=== PATIENT | female | born 1975 | race Caucasian/White ===

== ENCOUNTER 2021-02-17 13:42 | Emergency (ER) | payer MEDICARE ==
[~2021-02-17 13:42] MED LIST: BACTRIM DS TAB1 EACH PO; METRONIDAZOLE500 MG PO
[2021-02-17 14:58] LABS: BASOPHIL 0.4 % (0-2); HGB 15.4 g/dl (12.5-16.0); LYMPHOCYTE 28.1 % (15-48); MCH 31.4 pg (25.0-31.0); MCHC 33.5 g/dL (32.0-36.0); MCV 93.7 fL (78.0-100.0); MONOCYTE 8.5 % (0-12); MPV 9.5 fL (6.0-9.5); NEUTROPHIL 60.7 % (41-80); NRBC 0; PLT 196 K/uL (150-400); RBC 4.91 M/uL (4.20-5.40); WBC 7.7 K/uL (4.0-10.5)
[2021-02-17 15:40] LABS: ALBUMIN 3.5 g/dL (3.4-5.0); ALKALINE PHOSHATASE 98 U/L (46-116); ALT 34 U/L (14-59); AST 23 U/L (15-37); BILIRUBIN - TOTAL 0.5 mg/dL (0.2-1.0); BUN 13 mg/dL (7-18); BUN/CREAT RATIO (CALC) 18.8 RATIO; CHLORIDE 109 mmol/L (98-107); CO2 (BICARBONATE) 25 mmol/L (21-32); CREATININE 0.69 mg/dL (0.51-0.95); GLOBULIN (CALCULATION) 2.8 g/dL; GLUCOSE 120 mg/dL (74-106); POTASSIUM 3.4 mmol/L (3.5-5.1); TOTAL PROTEIN 6.3 g/dL (6.4-8.2)
== END 2021-02-17 19:20 | disposition other institution (70) ==
LOC: FER 13:42
PROVIDERS: Emergency Medicine Emergency Medical Services
DX: F23 Brief psychotic disorder (principal); F31.9 Bipolar disorder, unspecified; Z20.822 Contact with and (suspected) exposure to COVID-19; Z79.899 Other long term (current) drug therapy
CPT/HCPCS: 36415; 80053; 85025; 93005; 99285; G0480; J1885; U0002

== ENCOUNTER 2021-08-16 12:38 | Emergency (ER) | payer MEDICARE ==
[2021-08-16 13:53] LABS: BASOPHIL 0.6 % (0-2); EOSINOPHIL 0.7 % (0-5); HCT 45.4 % (37.0-47.0); HGB 15.3 g/dl (12.5-16.0); LYMPHOCYTE 22.6 % (15-48); MCH 30.8 pg (25.0-31.0); MCHC 33.7 g/dL (32.0-36.0); MCV 91.5 fL (78.0-100.0); MONOCYTE 8.6 % (0-12); MPV 9.5 fL (6.0-9.5); NEUTROPHIL 67.1 % (41-80); NRBC 0; PLT 196 K/uL (150-400); RBC 4.96 M/uL (4.20-5.40); RDW 13.7 % (11.5-14.0); WBC 8.5 K/uL (4.0-10.5)
[2021-08-16 14:04] LABS: BUN 11 mg/dL (7-18); BUN/CREAT RATIO (CALC) 14.7 RATIO; CHLORIDE 108 mmol/L (98-107); CO2 (BICARBONATE) 26 mmol/L (21-32); CREATININE 0.75 mg/dL (0.51-0.95); GLUCOSE 97 mg/dL (74-106); POTASSIUM 3.9 mmol/L (3.5-5.1)
[2021-08-16 14:04] LABS: BILIRUBIN NEGATIVE (NEGATIVE); BLOOD 2+ Ery/uL (NEGATIVE); CLARITY CLEAR (CLEAR); COLOR YELLOW (YELLOW); GLUCOSE (U) NORMAL (NORMAL); LEUKOCYTES NEGATIVE Leu/uL (NEGATIVE); NITRITE NEGATIVE (NEGATIVE); PROTEIN NEGATIVE (NEGATIVE); SPECIFIC GRAVITY <=1.005 (1.001-1.030); UROBILINOGEN 0.2 mg/dL (0.2-1.0)
[2021-08-16 14:10] LABS: AMPHETAMINES NEGATIVE (NEGATIVE); BARBITURATES NEGATIVE (NEGATIVE); ECSTASY (MDMA) NEGATIVE (NEGATIVE); MARIJUANA (THC) NEGATIVE (NEGATIVE); METHADONE NEGATIVE (NEGATIVE); OPIATES NEGATIVE (NEGATIVE); OXYCODONE NEGATIVE (NEGATIVE)
[2021-08-16 14:20] LABS: BACTERIA TRACE; URINARY RBC RARE; URINARY WBC RARE
== END 2021-08-16 17:12 | disposition home or self-care (01) ==
LOC: FER 12:38
PROVIDERS: Nurse Practitioner Family
DX: R44.0 Auditory hallucinations (principal); Z20.822 Contact with and (suspected) exposure to COVID-19; Z88.1 Allergy status to other antibiotic agents
CPT/HCPCS: 36415; 80048; 80305; 81001; 85025; 99285; G0480; U0002